=== PATIENT | female | born 1985 | race Caucasian/White ===

== ENCOUNTER 2016-08-09 19:21 | Emergency (ER) | payer MEDICAID, OTHER ==
[~2016-08-09] VITALS: Wt 105.9 kg
--- NOTE | 2016-08-09 21:37 | ERD ---
ER Documentation Chief Complaint Date/Time DATE: 08/09/16 TIME: 21:34 Chief Complaint 6 wks preg, spotting HPI She is a 31-year-old female, , who presents emergency department with vaginal spotting 1 day. Patient states around mid day today she started having some light spotting. Patient denies wearing any pads. Patient states that she has some pelvic cramping however she denies any pain. She states her current pain level is a 2 out of 10. Patient denies any upper abdominal pain. Patient denies any fever, chills, chest pain, shortness of breath or loss of consciousness. Patient does admit to some nausea and vomiting which has been present throughout her . 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 Patient brings in referral. Patient's last menstrual period was on 06-20-16. ROS All systems reviewed and are negative except as per history of present illness. Medications Home Meds Active Scripts Cephalexin* (Keflex*) 500 Mg Capsule, 500 MG PO QID for 7 Days, CAP Prov:PILI GARCIA PA-C 08/10/16 PMhx/Soc History of Surgery: Yes (C SECTION) Anesthesia Reaction: No Hx Neurological Disorder: No Hx Respiratory Disorders: No Hx Cardiac Disorders: No Hx Psychiatric Problems: No Hx Miscellaneous Medical Probl: No Hx Alcohol Use: No Hx Substance Use: No Hx Tobacco Use: No Physical Exam Vitals Vital Signs Date Time Temp Pulse Resp B/P Pulse Ox O2 Delivery O2 Flow Rate FiO2 08/10/16 00:35 98.3 68 18 155/69 98 Room Air 08/09/16 20:04 98.8 86 20 141/76 100 Physical Exam GENERAL: Well-developed, well-nourished female. Appears in no acute distress. HEAD: Normocephalic, atraumatic. EYES: Pupils are equally reactive bilaterally. EOMs grossly intact. No conjunctival erythema. ENT: Moist mucous membranes. No uvula deviation. No kissing tonsils. NECK: Supple. No meningismus. Normal range of motion of the neck. LUNG: Clear to auscultation bilaterally. No rhonchi, wheezing, rales or coarse breath sounds. HEART: Regular rate and rhythm. No murmurs, rubs or gallops. ABDOMEN: No scars, ecchymosis or rashes noted. Soft and nondistended. Tender to palpation over the suprapubic region. Positive bowel sounds in all four quadrants. No rebound tenderness, no guarding. (-) McBurney's point tenderness. No CVA tenderness. BACK: No midline tenderness. EXTREMITIES: Equal pulses bilaterally. No peripheral clubbing, cyanosis or edema. No unilateral leg swelling. NEUROLOGIC: Alert and oriented. Moving all four extremities without any difficulty. Normal speech. Steady gait. SKIN: Normal color. Warm and dry. No rashes or lesions. Result Diagram: 08/09/162202 Results 24 hrs Laboratory Tests Test 08/09/16 22:03 08/09/16 22:27 Basophils # 0.110^3/ul Basophils % 0.4% Beta HCG, Quantitative 91541.0mIU/ml Eosinophils # 0.410^3/ul Eosinophils % 3.7% Hematocrit 41.8% Hemoglobin 13.5g/dl Lymphocytes # 3.510^3/ul Lymphocytes % 29.2% Mean Corpuscular Hemoglobin 27.9pg Mean Corpuscular Hemoglobin Concent 32.3g/dl Mean Corpuscular Volume 86.4fl Mean Platelet Volume 10.4fl Monocytes # 0.910^3/ul Monocytes % 7.5% Neutrophils # 7.010^3/ul Neutrophils % 58.9% Nucleated Red Blood Cells # 0.010^3/ul Nucleated Red Blood Cells % 0.0/100WBC Platelet Count 25254^3/UL Red Blood Count 4.8410^6/ul Red Cell Distribution Width 14.3% White Blood Count 11.910^3/ul Urine Bacteria FEW Urine Bilirubin NEGATIVE Urine Clarity SL HAZY Urine Color LT. YELLOW Urine Glucose NEGATIVE% Urine Hemoglobin NEGATIVE Urine Ketones NEGATIVE Urine Leukocyte Esterase 1+ Urine Microscopic RBC 0-2/HPF Urine Microscopic WBC 2-5/HPF Urine Nitrite NEGATIVE Urine Specific [place] 1.015 Urine Squamous Epithelial Cells MODERATE Urine Total Protein NEGATIVE Urine Urobilinogen 0.2 E.U./dL Urine pH 6.5 Procedures/MDM ED COURSE: The patient was stable throughout ED course. I kept the patient and/or family informed of laboratory and diagnostic imaging results throughout the ED course. DIAGNOSTIC IMAGING: Read by radiologist. Patient: CHARLOTTE ANDERSON : 1985 Age: 31 Sex: F MR #: [id number] [facility] #: [id number] DOS: 08/09/16 2132 Ordering MD: PILI GARCIA PA-C Location: [facility], [facility] Room/Bed: PROCEDURE: US Pelvis. CLINICAL INDICATION: Vaginal bleeding. . TECHNIQUE: Multiple sonographic images of the pelvis were obtained utilizing a transabdominal and endovaginal technique. The images were reviewed on a PACS workstation. COMPARISON: None available FINDINGS: Uterus: Normal in size, contour and echogenicity with no evidence for myometrial masses. Length is estimated at 8.9 cm. Cervix: No abnormalities of significance are seen. Endometrium: Intrauterine gestational sac is visualized and measured at 19.7 mm. This corresponds to an age of 6-week 6 days however, there is no evidence of a pole or yolk sac. Hypoechoic area adjacent to the gestational sac measures approximately 1 cm consistent with a subchorionic hemorrhage. Right ovary / adnexa: The ovary is not visualized. There is no evidence of adnexal mass or free fluid. Left ovary/adnexa: The ovary is not visualized. There is no evidence of adnexal mass or free fluid. Cul-de-sac: No evidence of free fluid. RPTAT:HJJR IMPRESSION: 1. Intrauterine gestational sac without a pole corresponds to an age of 6 weeks 6 days. Early intrauterine and anembryonic / blighted ovum are differential diagnostic possibilities. Correlation with serial of serum and a HCG levels and follow-up pelvic ultrasound is suggested. 2. Small area adjacent to the gestational sac consistent with a subchorionic hemorrhage. 3. Neither ovary is visualized. Physician Luisito Date Time Electronically viewed and signed by Physician Luisito on 08/09/2016 22:43 JR/ CC: PILI GARCIA PA-C MEDICAL DECISION MAKING: This is a 31-year-old female who presents with vaginal spotting 1 day. She denies using any pads. Vital signs were reviewed. Patient was afebrile. Patient was hemodynamically stable. Urine test was positive. Urinalysis showed 1+ leukocyte esterase, 2-5 microscope WBCs. Quantitative b-HCG was 60153. Given that Rh factor was O+, Rhogam was not given. CBC showed no evidence of severe anemia, WBC count of 11.9. Patient's elevated white blood count likely due to UTI. Pelvic US showed Intrauterine gestational sac without a pole corresponds to an age of 6 weeks 6 days. Early intrauterine and anembryonic /blighted ovum are differential diagnostic possibilities. Correlation with serial of serum and a HCG levels and follow-up pelvic ultrasound is suggested. Small area adjacent to the gestational sac consistent with a subchorionic hemorrhage. Neither ovary is visualized. Given these findings, the patient's presentation is most consistent with early intrauterine and subchorionic hemorrhage. Unable to rule out threatened at this time. I have a much lower clinical concern for ectopic , ruptured ectopic , molar , subchorionic hematoma, incomplete , complete , missed , placental abruption, anembyronic , demise. PRESCRIPTIONS: Keflex DISCHARGE: At this time, patient is stable for discharge and outpatient management. I had a conversation at length with the patient about the concerns of vaginal bleeding during the 1st trimester of . Patient and/or family understands that her vaginal bleeding can be a normal finding or a sign of miscarriage. I have instructed the patient to follow-up with her OBGYN in 1-2 days for further monitoring including a repeat b-HCG level and pelvic US. I have instructed the patient to promptly return to the ER at any time for any new or worsening symptoms including increased pain, nausea, vomiting, continued bleeding, weakness, syncope or fever. The patient and/or family expressed understanding of and agreement with this plan. All questions were answered. Home care instructions were provided. Departure Diagnosis: Primary Impression: Vaginal bleeding in patient at less than 20 weeks ges... Additional Impression: Subchorionic hematoma Fetus number: single or unspecified fetus Trimester: unspecified trimester Qualified Code: O41.8X90 - Subchorionic hematoma, unspecified trimester, not applicable or unspecified fetus Condition: Stable Patient Instructions: Bleeding During Early Referrals: COMMUNITY CLINICS YOU HAVE RECEIVED A MEDICAL SCREENING EXAM AND THE RESULTS INDICATE THAT YOU DO NOT HAVE A CONDITION THAT REQUIRES URGENT TREATMENT IN THE EMERGENCY DEPARTMENT. FURTHER EVALUATION AND TREATMENT OF YOUR CONDITION CAN WAIT UNTIL YOU ARE SEEN IN YOUR DOCTORS OFFICE WITHIN THE NEXT 1-2 DAYS. IT IS YOUR RESPONSIBILITY TO MAKE AN APPOINTMENT FOR FOLOW-UP CARE. IF YOU HAVE A PRIMARY DOCTOR --you should call your primary doctor and schedule an appointment IF YOU DO NOT HAVE A PRIMARY DOCTOR YOU CAN CALL OUR PHYSICIAN REFERRAL HOTLINE AT IF YOU CAN NOT AFFORD TO SEE A PHYSICIAN YOU CAN CHOSE FROM THE FOLLOWING [facility] [address] [facility]. [facility] [address] [facility]. [facility] [address] [facility] [address] [facility] [address] [facility]. [facility] [address] [facility]. [facility] YOU HAVE RECEIVED A MEDICAL SCREENING EXAM AND THE RESULTS INDICATE THAT YOU DO NOT HAVE A CONDITION THAT REQUIRES URGENT TREATMENT IN THE EMERGENCY DEPARTMENT. FURTHER EVALUATION AND TREATMENT OF YOUR CONDITION CAN WAIT UNTIL YOU ARE SEEN IN YOUR DOCTORS OFFICE WITHIN THE NEXT 1-2 DAYS. IT IS YOUR RESPONSIBILITY TO MAKE AN APPOINTMENT FOR FOLOW-UP CARE. IF YOU HAVE A PRIMARY DOCTOR --you should call your primary doctor and schedule and appointment IF YOU DO NOT HAVE A PRIMARY DOCTOR YOU CAN CALL OUR PHYSICIAN REFERRAL HOTLINE AT . IF YOU CAN NOT AFFORD TO SEE A PHYSICIAN YOU CAN CHOSE FROM THE FOLLOWING [facility]: [facility] [address] [place] [address] [facility] [address] [place] [address] [facility] [address] [place] [address] CITY MAINTENANCE MANAGER [place] [address] [facility] [address] [place] [address] OFFICE FAX ELIZA [address] [address] [address] DAMON [place] [address] [facility], [place] [address] DR LARA [facility] [address], [facility] [address] [facility] [address] [facility], [place] [address] [place] [address] [place] [address] [address] [facility], [facility] [address] - [address] SANDS [place] [address], [facility] [address] [address] LEES, [facility] [address] [facility]. [address], [facility] [address] [address] DIE[address] [facility] [address] [place], [place] [id number] Additional Instructions: Call your primary care doctor/obgyn TOMORROW for an appointment during the next 1-2 days.See the doctor sooner or return here if your condition worsens before your appointment time. PILI GARCIA PA-C Aug 09, 2016 21:36
[2016-08-09 22:10] LABS: ADD SCAN DIFF NO
[2016-08-09 22:19] LABS: BASOPHIL # 0.1 10^3/ul (0.0-0.1); BASOPHILS % 0.4 % (0.0-2.0); EOSINOPHILS # 0.4 10^3/ul (0.0-0.5); EOSINOPHILS % 3.7 % (0.0-7.0); HEMATOCRIT 41.8 % (37.0-47.0); HEMOGLOBIN 13.5 g/dl (12.0-16.0); LYMPHOCYTES # 3.5 10^3/ul (0.8-2.9); LYMPHOCYTES % 29.2 % (15.0-51.0); MEAN CORPUSCULAR HEMOGLOBIN 27.9 pg (29.0-33.0); MEAN CORPUSCULAR HGB CONC 32.3 g/dl (32.0-37.0); MEAN CORPUSCULAR VOLUME 86.4 fl (82.0-101.0); MEAN PLATELET VOLUME 10.4 fl (7.4-10.4); MONOCYTE # 0.9 10^3/ul (0.3-0.9); MONOCYTES % 7.5 % (0.0-11.0); NEUTROPHILS % 58.9 % (39.0-77.0); PLATELET COUNT 291 10^3/UL (140-415); RED BLOOD COUNT 4.84 10^6/ul (4.20-5.40); RED CELL DISTRIBUTION WIDTH 14.3 % (11.5-14.5); WHITE BLOOD COUNT 11.9 10^3/ul (4.8-10.8)
--- NOTE | 2016-08-09 22:43 | RADRPT ---
PROCEDURE: US Pelvis. CLINICAL INDICATION: Vaginal bleeding. . TECHNIQUE: Multiple sonographic images of the pelvis were obtained utilizing a transabdominal and endovaginal technique. The images were reviewed on a PACS workstation. COMPARISON: None available FINDINGS: Uterus: Normal in size, contour and echogenicity with no evidence for myometrial masses. Length is e stimated at 8.9 cm. Cervix: No abnormalities of significance are seen. Endometrium: Intrauterine gestational sac is visualized and measured at 19.7 mm. This corresponds t o an age of 6-week 6 days however, there is no evidence of a pole or yolk sac. Hypoechoic are a adjacent to the gestational sac measures approximately 1 cm consistent with a subchorionic hemorrh age. Right ovary / adnexa: The ovary is not visualized. There is no evidence of adnexal mass or free fl uid. Left ovary/adnexa: The ovary is not visualized. There is no evidence of adnexal mass or free fluid. Cul-de-sac: No evidence of free fluid. RPTAT:HJJR IMPRESSION: 1. Intrauterine gestational sac without a pole corresponds to an age of 6 weeks 6 days. Grzegorz y intrauterine and anembryonic /blighted ovum are differential diagnostic possibi lities. Correlation with serial of serum and a HCG levels and follow-up pelvic ultrasound is sugges lv. 2. Small area adjacent to the gestational sac consistent with a subchorionic hemorrhage. 3. Neither ovary is visualized. Physician Luisito Date Time Electronically viewed and signed by Physician Luisito on 08/09/2016 22:43 /
[2016-08-09 23:05] LABS: ADD UMIC YES; URINE BILIRUBIN (Dip) NEGATIVE (NEGATIVE); URINE BLOOD (Dip) NEGATIVE (NEGATIVE); URINE COLOR LT. YELLOW (YELLOW); URINE GLUCOSE (Dip) NEGATIVE (NEGATIVE); URINE KETONES (Dip) NEGATIVE (NEGATIVE); URINE LEUKOCYTE ESTERASE (Dip) 1+ (NEGATIVE); URINE NITRITE (Dip) NEGATIVE (NEGATIVE); URINE TOTAL PROTEIN (Dip) NEGATIVE (NEGATIVE); URINE UROBILINOGEN (Dip) 0.2 E.U./dL (0.1-1.0)
[2016-08-10 00:09] LABS: SQUAMOUS EPITHELIAL CELL,UR MODERATE; URINE RBCS 0-2 /HPF (0)
[2016-08-10 00:11] LABS: BACTERIA,URINE FEW
[2016-08-10] MEDS ORDERED: CEPH-443 PO (00:24)
[2016-08-10 00:35] VITALS: BP 155/69; PULSE 68; RESP 18; TEMP 98.3
== END 2016-08-10 00:36 | disposition home or self-care (01) ==
LOC: FTE 19:21
DX: O20.9 Hemorrhage in early pregnancy, unspecified (principal); R10.2 Pelvic and perineal pain; Z3A.01 Less than 8 weeks gestation of pregnancy
CPT/HCPCS: 36415; 76801; 76817; 81001; 84702; 85025; 86900; 86901; Z7502; 81003

== ENCOUNTER 2016-08-17 12:52 | Emergency (ER) | payer MEDICAID ==
[~2016-08-17] VITALS: Wt 110.0 kg
[~2016-08-17 12:52] MED LIST: CEPH-443 PO
--- NOTE | 2016-08-17 16:08 | RADRPT ---
PROCEDURE: US Pelvis/OB. CLINICAL INDICATION: Pelvic pain, decreasing beta HCG levels TECHNIQUE: Multiple sonographic images of the pelvis were obtained utilizing a transabdominal tech nique. The images were reviewed on a PACS workstation. COMPARISON: 08/09/2016 FINDINGS: The uterus measures 13.3 x 4.9 x 6.1 cm. There is a cystic structure within the endometrium measuring 2.1 cm which corresponds to a calculate d gestational age of 6 weeks and 6 days. There are multiple septations within the gestational sac. No pole or yolk sac is yet visualized. The ovaries are not visualized. No significant free fluid is present within the pelvis. RPTAT: AA IMPRESSION: Nonviable intrauterine at 6 weeks and 6 days. No significant interval change. Close followup ultrasound and hCG is recommended. .Bautista Fairchild MD, Date Time Electronically viewed and signed by .Bautista Fairchild MD, on 08/17/2016 16:08 .S/
--- NOTE | 2016-08-17 18:16 | ERD ---
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 Patient reports that her LICENSED OPTICAL DISPENSER is Dr. Rucker has a downtrending beta hCG. Denies any abdominal pain, nausea, vomiting, diarrhea, vaginal bleeding, vaginal discharge. Reports that her last menses was on June 20, 2016. Denies any dysuria, urgency, frequency. Reports that she is taking antibiotic for urinary tract infection. ROS All systems reviewed and are negative except as per history of present illness. Medications Home Meds Active Scripts Cephalexin* (Keflex*) 500 Mg Capsule, 500 MG PO QID for 7 Days, CAP Prov:PILI GARCIA PA-C 08/10/16 Allergies Allergies: Coded Allergies: No Known Allergy (Unverified , 08/17/16) PMhx/Soc Medical and Surgical Hx: pt denies Medical Hx History of Surgery: Yes (C SECTION) Anesthesia Reaction: No Hx Neurological Disorder: No Hx Respiratory Disorders: No Hx Cardiac Disorders: No Hx Psychiatric Problems: No Hx Miscellaneous Medical Probl: No Hx Alcohol Use: No Hx Substance Use: No Hx Tobacco Use: No Smoking Status: Never smoker Physical Exam Vitals Vital Signs Date Time Temp Pulse Resp B/P Pulse Ox O2 Delivery O2 Flow Rate FiO2 08/17/16 13:01 98.0 67 18 125/63 98 Physical Exam Const: Gfk-uus-iwsbkavhy, well-nourished. In no acute distress. Head: Atraumatic, normocephalic Eyes: Normal Conjunctiva without injection. No purulent discharge. ENT: Normal external ear, nose. Moist oropharynx without tonsillar exudates. Non -erythematous pharynx. Uvula midline. No drooling. No trismus. Neck: No cervical midline tenderness. Full range of motion. No meningismus. No cervical lymphadenopathy. No JVD. Resp: Clear to auscultation bilaterally. No wheezing, rhonchi, rales, or crackles. No accessory muscle use. No retractions. Cardio: Regular rate and rhythm. No murmurs, rubs or gallops. Abd: Soft, non distended. Normal bowel sounds. No palpable masses. No rebound tenderness. No guarding. Negative McBurney's point. Negative psoas sign. Negative obturator sign. : See exam in MDM. Skin: No petechiae or rashes Back: No midline tenderness. No CVA tenderness. Ext: No cyanosis, or edema. Neur: Awake and alert. Normal gait. Normal coordination. 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 Patient is afebrile and nontoxic-appearing. Patient has normal vital signs. PROCEDURE: US Pelvis/OB. CLINICAL INDICATION: Pelvic pain, decreasing beta HCG levels TECHNIQUE: Multiple sonographic images of the pelvis were obtained utilizing a transabdominal technique. The images were reviewed on a PACS workstation. COMPARISON: 08/09/2016 FINDINGS: The uterus measures 13.3 x 4.9 x 6.1 cm. There is a cystic structure within the endometrium measuring 2.1 cm which corresponds to a calculated gestational age of 6 weeks and 6 days. There are multiple septations within the gestational sac. No pole or yolk sac is yet visualized. The ovaries are not visualized. No significant free fluid is present within the pelvis. RPTAT: AA IMPRESSION: Nonviable intrauterine at 6 weeks and 6 days. No significant interval change. Close followup ultrasound and hCG is recommended. Patient's beta hCG is 14 359 and has down trended from 27,039. Patient likely has a probable miscarriage due to the nonviable intrauterine noted on ultrasound. An ultrasound, beta-hCG, CBC, type and RH, UA was ordered to evaluate patient. Low suspicion for symptomatic anemia, ectopic , sepsis, PID, appendicitis, ovarian torsion, tubo-ovarian abscess, surgical abdomen, or other emergent conditions. Patient was educated that there is a risk for threatened . Patient to follow up with LICENSED OPTICAL DISPENSER in tomorrow for further evaluation and treatment. Patient is to return sooner to the ED for any worsening symptoms. Patient's questions were answered. Patient understood and agreed with discharge plan. Departure Diagnosis: Primary Impression: Threatened Condition: Stable Patient Instructions: Possible Miscarriage (Threatened ) Referrals: COMMUNITY CLINICS YOU HAVE RECEIVED A MEDICAL SCREENING EXAM AND THE RESULTS INDICATE THAT YOU DO NOT HAVE A CONDITION THAT REQUIRES URGENT TREATMENT IN THE EMERGENCY DEPARTMENT. FURTHER EVALUATION AND TREATMENT OF YOUR CONDITION CAN WAIT UNTIL YOU ARE SEEN IN YOUR DOCTORS OFFICE WITHIN THE NEXT 1-2 DAYS. IT IS YOUR RESPONSIBILITY TO MAKE AN APPOINTMENT FOR FOLOW-UP CARE. IF YOU HAVE A PRIMARY DOCTOR --you should call your primary doctor and schedule an appointment IF YOU DO NOT HAVE A PRIMARY DOCTOR YOU CAN CALL OUR PHYSICIAN REFERRAL HOTLINE AT IF YOU CAN NOT AFFORD TO SEE A PHYSICIAN YOU CAN CHOSE FROM THE FOLLOWING [facility] [address] [facility] [employer] V[facility]. [facility] [address] [facility]. [facility] 2157 [facility]. [facility] [address] [facility] [address] [facility]. [facility] 1600 [facility] YOU HAVE RECEIVED A MEDICAL SCREENING EXAM AND THE RESULTS INDICATE THAT YOU DO NOT HAVE A CONDITION THAT REQUIRES URGENT TREATMENT IN THE EMERGENCY DEPARTMENT. FURTHER EVALUATION AND TREATMENT OF YOUR CONDITION CAN WAIT UNTIL YOU ARE SEEN IN YOUR DOCTORS OFFICE WITHIN THE NEXT 1-2 DAYS. IT IS YOUR RESPONSIBILITY TO MAKE AN APPOINTMENT FOR FOLOW-UP CARE. IF YOU HAVE A PRIMARY DOCTOR --you should call your primary doctor and schedule and appointment IF YOU DO NOT HAVE A PRIMARY DOCTOR YOU CAN CALL OUR PHYSICIAN REFERRAL HOTLINE AT . IF YOU CAN NOT AFFORD TO SEE A PHYSICIAN YOU CAN CHOSE FROM THE FOLLOWING [facility] INSTITUTIONS: [facility] [address] [place] [address] [address] [place] [address] [facility] [address] [place] [address] [facility] URGENT CARE/SPECIALTIES LICENSED OPTICAL DISPENSER [place] [address] [facility] [address] [place] [address] OFFICE FAX , ARN[place] [address] [place], [place] [id number] [place], [place] [address] [place] [address] DR LARA, [facility] [address], [address], [place] [address] DR AGUILERA, [facility] [address] [facility], [place] [address] [facility] [address] [place] [address] [facility] [address] - DR SANDS, [place] [address], [place] [address] DR LEES, [place] [address] [facility]. [address], [place] [address] DR [facility] [address] [place], [place] [id number] [facility] Hours: 8:00 am - 5:00 pm Additional Instructions: FOLLOW UP WITH YOUR LICENSED OPTICAL DISPENSER PHYSICIAN, Dr. Rucker TOMORROW.Return to this facility if you are not improving as expected. MEME HAMILTON PA-C Aug 17, 2016 18:16
== END 2016-08-17 20:12 | disposition home or self-care (01) ==
LOC: FTE 12:52
DX: O20.9 Hemorrhage in early pregnancy, unspecified (principal); R10.2 Pelvic and perineal pain; Z3A.01 Less than 8 weeks gestation of pregnancy
CPT/HCPCS: 76801; 76817; 84702